=== PATIENT | female | born 1960 | race Caucasian/White ===

== ENCOUNTER → 2017-01-10 | Outpatient (CLI) | payer BC ==
[~2017-01-10] MED LIST: FOLI-17 PO; FURO-92 PO; LACT10SO5 PO; LEVO750T26 PO; METR500T PO; OXYC5CAP4 PO; OXYC5TAB3 PO; PANT40TA3 PO; POTA20PA PO; RIFA550T PO; SPIR100T PO; SPIR50TA PO; SUCR1ORA11 PO; SUCR1ORA2 PO; THIA100T10 PO; THIA100T6 PO; TRAM-28 PO; ZINC220C5 PO
== END | disposition home or self-care (01) ==
LOC: CFH 08:41
PROVIDERS: ATTEND Internal Medicine Gastroenterology
DX: K70.30 Alcoholic cirrhosis of liver without ascites (principal); Z90.49 Acquired absence of other specified parts of digestive tract
CPT/HCPCS: 76705

== ENCOUNTER → 2017-02-24 | Outpatient (CLI) | payer BC | END | disposition home or self-care (01) | LOC: CFH 07:09 | PROVIDERS: ATTEND Physician Assistant Medical | DX: K70.31 Alcoholic cirrhosis of liver with ascites (principal); K70.11 Alcoholic hepatitis with ascites; Z90.49 Acquired absence of other specified parts of digestive tract; K76.6 Portal hypertension; R16.1 Splenomegaly, not elsewhere classified | CPT/HCPCS: 76705 ==

== ENCOUNTER 2017-04-19 10:24 | Inpatient (IN) | payer BC ==
[~2017-04-19] VITALS: Ht 172.7 cm; Wt 60.0 kg
[2017-04-19] MEDS ORDERED: PANTOPRAZOLE 80 MG in SODIUM CHLORIDE 0.9% 50 ML IVPB ONE (12:36)
[2017-04-19] MEDS ORDERED: ZINC50TA3 PO (12:36)
[2017-04-19] MEDS ORDERED: OCTREOTIDE 100MCG/ML, 1ML (0.1MG/ML) IV ONE (13:00)
[2017-04-19] MEDS ORDERED: SODIUM CHLORIDE 0.9% 1,000ML IVBOLUS ONE (13:00)
[2017-04-19] MEDS ORDERED: SODIUM CHLORIDE FLUSH 10ML SYR IVF ONE (13:00)
[2017-04-19 13:32] LABS: ASPARTATE AMINO TRANSFERASE 30 U/L (15-37); BLOOD UREA NITROGEN 41 mg/dL (7-18)
[2017-04-19] MEDS ORDERED: PANTOPRAZOLE 80 MG in SODIUM CHLORIDE 0.9% 100 ML IV SCH (13:51)
[2017-04-19] MEDS ORDERED: SODIUM CHLORIDE 0.9% 1,000 ML IV ONE (14:01)
[2017-04-19] MEDS ORDERED: OCTREOTIDE 100MCG/ML, 1ML (0.1MG/ML) ONE (14:08)
[2017-04-19] MEDS: SODIUM CHLORIDE 0.9% 1,000 ML IV SCH ×2 (14:19→20:59)
[2017-04-19] MEDS ORDERED: OCTREOTIDE 500 MCG in SODIUM CHLORIDE 0.9% 249 ML IV SCH ×2 (14:30→20:30)
[2017-04-19] MEDS ORDERED: SODIUM CHLORIDE FLUSH 10ML SYR IVF PRN (14:30)
[2017-04-19] MEDS ORDERED: LABETALOL 5MG/ML 40ML VIAL IVPush PRN (14:30)
[2017-04-19] MEDS ORDERED: ONDANSETRON 2MG/ML, 2ML IVPush PRN (14:30)
[2017-04-19 16:11] VITALS: BP 116/69
[2017-04-19] MEDS: CEFTRIAXONE PMX 1GM/50ML 50 ML IV SCH (17:57)
[2017-04-19 20:40] VITALS: BP 110/66
[2017-04-19] MEDS: OCTREOTIDE 500 MCG in SODIUM CHLORIDE 0.9% 249 ML IV SCH (21:00)
[2017-04-19] MEDS: ZOLPIDEM 5MG TABLET PO PRN (22:35)
[2017-04-20] VITALS (10 sets, daily range): BP systolic 96–124; BP diastolic 58–72
[2017-04-20] MEDS: ZOLPIDEM 5MG TABLET PO PRN (03:19)
[2017-04-20 05:47] LABS: ASPARTATE AMINO TRANSFERASE 28 U/L (15-37); BLOOD UREA NITROGEN 31 mg/dL (7-18)
[2017-04-20 06:09] LABS: ANISOCYTOSIS 2+; POIKILOCYTOSIS 1+
[2017-04-20 06:10] LABS: OVALOCYTES 1+
[2017-04-20] MEDS ORDERED: PANTOPRAZOLE 80 MG in SODIUM CHLORIDE 0.9% 100 ML IV SCH (08:30)
[2017-04-20] MEDS ORDERED: FENTANYL PF 100 MCG/2ML ONE ×2 (11:03→11:30)
[2017-04-20] MEDS ORDERED: PROMETHAZINE 25 MG/ML, 1ML IV PRN (11:30)
[2017-04-20] MEDS ORDERED: LABETALOL 5MG/ML, 20ML IV PRN (11:30)
[2017-04-20] MEDS ORDERED: ALBUTEROL SULFATE 2.5 MG/3 ML NPPB PRN (11:30)
[2017-04-20] MEDS ORDERED: HYDROmorphone 1 MG/ML, 1ML IV PRN (11:30)
[2017-04-20] MEDS ORDERED: OXYcodone 5 MG/5 ML ORAL.SOL UDC PO PRN (11:30)
[2017-04-20] MEDS ORDERED: hydrALAzine 20 MG/ML, 1ML IV PRN (11:30)
[2017-04-20] MEDS ORDERED: MEPERIDINE/PF 25MG/0.5ML IVPush PRN (11:30)
[2017-04-20] MEDS ORDERED: ONDANSETRON 2MG/ML, 2ML IVPush PRN (11:30)
[2017-04-20] MEDS ORDERED: MIDAZOLAM 1 MG/ML, 2ML IV PRN (11:30)
[2017-04-20] MEDS: FENTANYL PF 100 MCG/2ML IV PRN ×4 (11:32→12:01)
[2017-04-20] MEDS ORDERED: OXYcodone 5 MG/5 ML ORAL.SOL UDC ONE (11:46)
[2017-04-20] MEDS ORDERED: PANTOPRAZOLE 40 MG IV IVPush SCH (12:00)
[2017-04-20] MEDS: SUCRALFATE 1 GM/10 ML UDC PO SCH ×3 (13:03→19:23)
[2017-04-20] MEDS: LACTULOSE 20 GM/30 ML UDC PO SCH ×2 (13:03→21:55)
[2017-04-20] MEDS ORDERED: OCTREOTIDE 500 MCG in SODIUM CHLORIDE 0.9% 249 ML IV SCH (14:30)
[2017-04-20] MEDS ORDERED: PROPOFOL 10 MG/ML, 20ML ONE (16:14)
[2017-04-20] MEDS ORDERED: DEXAMETHASONE 4 MG/ML, 1ML ONE (16:14)
[2017-04-20] MEDS ORDERED: SUCCINYLCHOLINE 20 MG/ML, 10ML ONE (16:14)
[2017-04-20] MEDS ORDERED: ONDANSETRON 2MG/ML, 2ML ONE (16:14)
[2017-04-20] MEDS ORDERED: ROCURONIUM 10 MG/ML ONE (16:14)
[2017-04-20] MEDS: SODIUM CHLORIDE 0.9% 1,000 ML IV SCH (16:59)
[2017-04-20] MEDS: CHOLECALCIFEROL 1,000 UNIT TABLET PO SCH (17:33)
[2017-04-20] MEDS: PROPRANOLOL 10 MG TABLET PO SCH (18:00)
[2017-04-20] MEDS: PANTOPROZOLE 40MG TABLET PO SCH (19:23)
[2017-04-20] MEDS: CEFTRIAXONE PMX 1GM/50ML 50 ML IV SCH (19:23)
[2017-04-20] MEDS: OCTREOTIDE 500 MCG in SODIUM CHLORIDE 0.9% 249 ML IV SCH (19:23)
[2017-04-21 02:54] VITALS: BP 96/61
[2017-04-21] MEDS: PROPRANOLOL 10 MG TABLET PO SCH (05:00)
[2017-04-21 05:25] LABS: ASPARTATE AMINO TRANSFERASE 36 U/L (15-37); BLOOD UREA NITROGEN 21 mg/dL (7-18)
[2017-04-21 06:44] VITALS: BP 101/65
[2017-04-21] MEDS: LACTULOSE 20 GM/30 ML UDC PO SCH (08:15)
[2017-04-21] MEDS: SUCRALFATE 1 GM/10 ML UDC PO SCH ×2 (08:15→11:00)
[2017-04-21] MEDS: PANTOPROZOLE 40MG TABLET PO SCH (08:15)
[2017-04-21] MEDS: CHOLECALCIFEROL 1,000 UNIT TABLET PO SCH (08:15)
[2017-04-21] MEDS ORDERED: SUCR1ORA2 PO (10:35)
[2017-04-21] MEDS ORDERED: PROP10TA PO (10:35)
[2017-04-21] MEDS ORDERED: PANT40TA5 PO (10:35)
== END 2017-04-21 13:00 | disposition home or self-care (01) | DRG 378 ==
LOC: ED 13:18 → EDIP 14:01 → 3NE 15:52 → DCLOUNGE 04-21 12:41
PROVIDERS: ADMIT Internal Medicine; ATTEND Internal Medicine
PROC: 30233N1 Transfusion of Nonautologous Red Blood Cells into Peripheral Vein, Percutaneous Approach (ICD-10-PCS; 2017-04-20)
PROC: 06L34CZ Occlusion of Esophageal Vein with Extraluminal Device, Percutaneous Endoscopic Approach (ICD-10-PCS; principal; 2017-04-20 10:30)
DX: K92.0 Hematemesis (principal); D68.9 Coagulation defect, unspecified; D61.818 Other pancytopenia; K76.6 Portal hypertension; F10.21 Alcohol dependence, in remission; D50.0 Iron deficiency anemia secondary to blood loss (chronic); D63.8 Anemia in other chronic diseases classified elsewhere; R79.89 Other specified abnormal findings of blood chemistry; M19.90 Unspecified osteoarthritis, unspecified site; K72.90 Hepatic failure, unspecified without coma; I85.10 Secondary esophageal varices without bleeding; D75.89 Other specified diseases of blood and blood-forming organs; K70.31 Alcoholic cirrhosis of liver with ascites; E53.8 Deficiency of other specified B group vitamins; K31.89 Other diseases of stomach and duodenum; Z90.49 Acquired absence of other specified parts of digestive tract; Z88.5 Allergy status to narcotic agent; Z88.1 Allergy status to other antibiotic agents
CPT/HCPCS: 36415; 80053; 82105; 82140; 82306; 82607; 82746; 84425; 84590; 84630; 85014; 85018; 85025; 85610; 85730; 86850; 86900; 86923; 96361; 96374; J0696; J1100; J2354; J2405; J2704; J3010; C9113; J0330; J7030; J7050; P9016

== ENCOUNTER → 2017-08-29 | Outpatient (CLI) | payer BC ==
[~2017-08-29] MED LIST changes: +OXYC5CAP2 PO; -OXYC5CAP4 PO; +PANT40TA5 PO; +PROP10TA PO; -RIFA550T PO; +RIFA550T4 PO; -SUCR1ORA2 PO; +SUCR1ORA5 PO; -TRAM-28 PO; +TRAM-47 PO; +ZINC50TA3 PO
== END | disposition home or self-care (01) ==
LOC: CFH 08:05
PROVIDERS: ATTEND Internal Medicine Gastroenterology
DX: K70.30 Alcoholic cirrhosis of liver without ascites (principal); Z88.8 Allergy status to other drugs, medicaments and biological substances
CPT/HCPCS: 76705